=== PATIENT | female | born 1985 | race African-American/Black ===

== ENCOUNTER 2017-10-16 19:53 | Inpatient (IN) | payer MEDICAID ==
[~2017-10-16] VITALS: Ht 157.5 cm; Wt 60.3 kg
[2017-10-16] MEDS ORDERED: PREN1TAB45 PO (20:42)
--- NOTE | 2017-10-16 20:53 | PD ---
HPI Chief Complaint Contractions and ruptured membranes Date Seen: Oct 16, 2017 Time Seen: 20:49 Travel History International Travel<30 Days: Yes Contact w/Intl Traveler<30Days: Yes Name of Country Traveled to: [place] Known Affected Area: Yes History of Present Illness HPI 32-year-old who is at 39 weeks 6 days based on first trimester ultrasound comes in complaining of contractions for several hours and rupture membranes that occurred an hour and a half ago. She gets her care in the lab with Dr. Watson and we have no records despite calling the [facility]. Patient has a history of a delivery at 32 weeks, vaginally that was 4 lbs. 2 oz. Patient denies any complications and states that she does believe that she is group B strep positive based on the conversation she had with the planner/scheduler Weeks Gestation: 39 Para: 1 : 2 History Past Medical History Medical History: Denies Significant Hx Obstetric History Obstetric History Spontaneous vaginal delivery at 32 weeks Past Surgical History Surgical History: No Previous Surgery Family History Family History: Negative Social History Alcohol Use: No Tobacco Use: No Substance Abuse: No Allergies-Medications (Allergen,Severity, Reaction): Coded Allergies: No Known Allergies (Verified Allergy, Unknown, 10/16/17) Home Meds Reported Medications Vit,Calc76/Iron/Folic (Pnv 29-1 Tablet) 29 Mg Iron-1 Mg Tablet, 1 TAB PO DAILY 10/16/17 Review of Systems Except as stated in HPI: all other systems reviewed are Neg Physical Exam Narrative GENERAL: Well-nourished, well-developed patient. SKIN: Warm and dry. HEAD: Normocephalic and atraumatic. EYES: No scleral icterus. No injection or drainage. ENT: No nasal drainage noted. Mucous membranes pink. Airway patent. NECK: Supple, trachea midline. No JVD. CARDIOVASCULAR: Regular rate and rhythm without murmurs, gallops, or rubs. RESPIRATORY: Breath sounds equal bilaterally. No accessory muscle use. ABDOMEN/GI: Abdomen soft, non-tender, bowel sounds present, no rebound, no guarding Gravid to [-] weeks size 36 Fundal Height: [-] GENITOURINARY: External Genitalia: intact and normal in appearance BUS glands: [-] Normal Cervix: [-] Midposition Dilatation: [-] 3 Effacement: [-] 90 Station: [-] -1 Presentation: [-] Vertex Membranes: [intact or ruptured] ruptured Uterine Contractions: [-] Irregular every 5-7 FHT's: Category: [-] 1 Baseline: [-] 140 Reactive: [-] Moderate Variability: [-] Moderate Decels: [-] Absent EXTREMITIES: No cyanosis or edema. BACK: Nontender without obvious deformity. No CVA tenderness. NEUROLOGICAL: Awake and alert. Motor and sensory grossly within normal limits. Five out of 5 muscle strength in all muscle groups. Normal speech. Data Data Vital Signs Reviewed: Yes Orders Orders Ob (2e) Additional Admit Info (10/16/17 20:40) Group B Strep: Positive MDM Plan 32-year-old who is at 39 weeks 6 days, possible positive group B strep in labor with ruptured membranes Patient appears to be a fairly good historian so we will treat her with penicillin for group B strep prophylaxis Diagnosis Diagnosis: Primary Impression: 39 weeks gestation of Additional Impressions: Previous delivery in third trimester, antepartum Rupture of membranes with clear amniotic fluid Mother positive for group B Streptococcus colonization Destiny Ewing MD Oct 16, 2017 20:53
[2017-10-16] MEDS ORDERED: LACTATED RINGER'S 1000 ML INJ 1,000 ML IV PRN (20:54)
[2017-10-16] MEDS ORDERED: LACTATED RINGER'S 1000 ML INJ 1,000 ML IV SCH (20:54)
[2017-10-16] MEDS ORDERED: SODIUM CHLORID 0.9% 500 ML INJ 500 ML IV PRN (21:00)
[2017-10-16] MEDS ORDERED: CITRIC ACID-SODIUM CITRATE LIQ 30 ML UDC PO SCH (21:00)
[2017-10-16] MEDS ORDERED: PENICILLIN G POTASSIUM INJ 5,000,000 UNITS in SODIUM CHLORIDE 0.9% INJ 100 ML IV ONE (21:00)
[2017-10-16] MEDS ORDERED: MINERAL OIL 10 ML VIAL TOPICAL PRN (21:00)
[2017-10-16] MEDS ORDERED: LIDOCAINE HCL 1% 50 ML VIAL I-DERMAL PRN (21:00)
[2017-10-16] MEDS ORDERED: ONDANSETRON HCL 4 MG/2 ML VIAL IV PUSH PRN (21:00)
[2017-10-16] MEDS ORDERED: LIDOCAINE HCL 1% 50 ML VIAL INFIL PRN (21:00)
[2017-10-16] MEDS ORDERED: OXYTOCIN 30 UNITS-500ML PREMIX 500 ML IV ONE (21:00)
[2017-10-16] MEDS ORDERED: SODIUM CHLOR 0.9% 1000 ML INJ 1,000 ML IV PRN (21:14)
[2017-10-16 21:18] VITALS: TEMP 97.5
[2017-10-16 22:08] LABS: AUTOMATED NEUTROPHIL # 6.9 TH/MM3 (1.8-7.7); BASOPHIL # 0.1 TH/MM3 (0-0.2); BASOPHIL % 0.6 % (0.0-2.0); EOSINOPHIL # 0.3 TH/MM3 (0-0.4); EOSINOPHIL % 2.7 % (0.0-4.0); HEMATOCRIT 37.1 % (35.0-46.0); HEMOGLOBIN 13.1 GM/DL (11.6-15.3); LYMPH % 23.3 % (9.0-44.0); LYMPHOCYTE # 2.4 TH/MM3 (1.0-4.8); MEAN CELL VOLUME 88.4 FL (80.0-100.0); MEAN CORPUSCULAR HEMOGLOBIN 31.1 PG (27.0-34.0); MEAN CORPUSCULAR HGB CONC 35.2 % (32.0-36.0); MEAN PLATELET VOLUME 8.3 FL (7.0-11.0); MONO % 6.3 % (0.0-8.0); MONOCYTE # 0.7 TH/MM3 (0-0.9); NEUT % 67.1 % (16.0-70.0); PLATELET COUNT 231 TH/MM3 (150-450); WHITE BLOOD COUNT 10.4 TH/MM3 (4.0-11.0)
[2017-10-16 22:19] LABS: BILIRUBIN, URINE NEG (NEG); BLOOD, URINE SMALL (NEG); GLUCOSE,URINE NEG (NEG); KETONE, URINE NEG (NEG); NITRITE,URINE NEG (NEG); PH, URINE 6.5 (5.0-8.5); SQUAMOUS EPITHELIAL CELL URINE 3 /hpf (0-5); URINE COLOR LIGHT-YELLOW (YELLW/STRAW); URINE LEUKOCYTE ESTERASE TRACE (NEG)
[2017-10-16 22:44] VITALS: RESP 18; TEMP 97.8
[2017-10-17] VITALS (19 sets, daily range): BP systolic 99–120; BP diastolic 65–82; PULSE 74–121; RESP 16–18; TEMP 97.7–98.8; O2SAT 97
[2017-10-17] MEDS ORDERED: LIDOCAINE HCL 1% 20 ML VIAL ONE (00:28)
--- NOTE | 2017-10-17 00:47 | PD.OB.DELI ---
Weeks gestation: 39 Pt started active labor?: Yes Medical induction of labor?: No Artificial rupture of membrane: No Anesthesia: None Episiotomy: None Vaginal Delivery: Normal, Spontaneous Presentation: Occiput anterior Nuchal Cord: x1 (cut at perineum) Delayed cord clamping (45 sec): No : Male Delivery date: Oct 17, 2017 Delivery time: 00:41 One Minute : 8 Five Minute : 9 Weight: delayed Placenta: Spontaneous delivery, Intact, 3 vessel cord Laceration: No lacerations Estimated blood loss: 300 Destiny Ewing MD Oct 17, 2017 00:47
[2017-10-17] MEDS ORDERED: DOCUSATE SODIUM 50 MG/SENNA 8.6 MG TAB PO PRN (01:00)
[2017-10-17] MEDS ORDERED: ALUMINUM/MAGNESIUM/SIMETH 30 ML CUP PO PRN (01:00)
[2017-10-17] MEDS ORDERED: WITCH HAZEL 50%/GLYCERIN 12.5% 40 PAD JAR TOPICAL PRN (01:00)
[2017-10-17] MEDS ORDERED: OXYTOCIN 30 UNITS-500ML PREMIX 500 ML IV SCH (01:00)
[2017-10-17] MEDS ORDERED: SODIUM CHLORIDE 0.9% FLUSH 10 ML FLUSH IV FLUSH PRN (01:00)
[2017-10-17] MEDS ORDERED: BENZOCAINE 20% TOPICAL SPRAY 60 ML CAN TOPICAL PRN (01:00)
[2017-10-17] MEDS ORDERED: ONDANSETRON ODT 4 MG TAB PO PRN (01:00)
[2017-10-17] MEDS ORDERED: ACETAMINOPHEN 325 MG TAB PO PRN (01:00)
[2017-10-17] MEDS ORDERED: PENICILLIN G POTASSIUM INJ 2,500,000 UNITS in SODIUM CHLORIDE 0.9% INJ 100 ML IV SCH (01:00)
[2017-10-17] MEDS ORDERED: OXYTOCIN 30 UNITS-500ML PREMIX 500 ML ONE (01:56)
[2017-10-17] MEDS ORDERED: SODIUM CHLORIDE 0.9% FLUSH 10 ML FLUSH IV FLUSH SCH (09:00)
[2017-10-17] MEDS: IBUPROFEN 800 MG TAB PO PRN ×2 (12:24→19:59)
[2017-10-17] MEDS ORDERED: DIPHTH/TETANUS/ACEL PERTUSSIS (BOOSTER) 0.5 ML VIAL/PFS IM ONE (16:00)
[2017-10-17] MEDS ORDERED: MEASLES, MUMPS, RUBELLA VACCINE 0.5 ML VIAL SQ ONE (16:00)
[2017-10-18 07:00] VITALS: BP 101/67; PULSE 68; RESP 18; TEMP 98.2; O2SAT 97
[2017-10-18] MEDS: IBUPROFEN 800 MG TAB PO PRN (09:46)
--- NOTE | 2017-10-18 09:46 | HHI.OB ---
Subjective Post Day: 1 Remarks 32 y/o who is PPD# 1 s/p . AFVSS overnight. Decreased lochia. Denies dysuria. No breast tenderness. She is feeding the baby via breast. Appetite good. No nausea or vomiting. Patient has not yet had a bowel movement. Ambulating well. Denies calf pain or shortness of breath. Otherwise, she is doing well this morning and has no other concerns. Objective Vitals/I&O Vital Signs Date Time Temp Pulse Resp B/P (MAP) Pulse Ox O2 Delivery O2 Flow Rate FiO2 10/18/17 07:00 98.2 68 18 101/67 (78) 97 10/17/17 20:00 98.3 97 10/17/17 20:00 81 18 118/72 (87) Objective Remarks GENERAL: Well-nourished, well-developed patient. CARDIOVASCULAR: Regular rate and rhythm without murmurs, gallops, or rubs. RESPIRATORY: Breath sounds equal bilaterally. No accessory muscle use. ABDOMEN/GI: Abdomen soft, non-tender. Fundus: Firm, non-tender at umbilicus. GENITOURINARY: Light to moderate bleeding. EXTREMITIES: No cyanosis or edema, non-tender, without signs of DVT. Medications and IVs Current Medications Medications (Trade) Dose Ordered Sig/Pete Route Start Time Stop Time Status Last Admin (NS Flush) 2 ml BID IV FLUSH 10/17/17 09:00 (NS Flush) 2 ml UNSCH PRN IV FLUSH 10/17/17 01:00 (Tylenol) 650 mg Q4H PRN PO 10/17/17 01:00 (Motrin) 800 mg Q8H PRN PO 10/17/17 01:00 10/17/17 19:59 (Americaine 20% Top Spr) 1 spray Q4H PRN TOPICAL 10/17/17 01:00 (Tucks Pads) 1 applic QID PRN TOPICAL 10/17/17 01:00 (Nicole-Colace) 2 tab Q12H PRN PO 10/17/17 01:00 (Mag-Al Plus Susp Liq) 15 ml Q8H PRN PO 10/17/17 01:00 (Zofran Odt) 4 mg Q6H PRN PO 10/17/17 01:00 Assessment/Plan Assessment and Plan 32 y/o female who is PPD# 1 s/p . -Continue routine care. -Percocet and Motrin PRN pain. -Encouraged OOB. Advised pelvic rest for 6 wks. -Anticipate discharge today or tomorrow. dw OB attending Heather Corona MD R1 Oct 18, 2017 09:46
[2017-10-18] MEDS ORDERED: IBUP1TAB7 PO (09:47)
--- NOTE | 2017-10-18 09:48 | HHI.DCPOC ---
Discharge Care Plan Diagnosis: (1) Vaginal delivery (2) Mother positive for group B Streptococcus colonization Your Health Problems Are: Vaginal delivery Report Symptoms to Your Doctor -Temperature above 100.5 degrees -Redness, of incision or excessive or foul smelling drainage -Unusual pain or calf pain -Increased vaginal bleeding -Painful or difficulty urinating -Feelings of extreme sadness or anxiety after 2 weeks Goals to Promote Your Health * To prevent worsening of your condition and complications * To maintain your health at the optimal level Directions to Meet Your Goals Take your medications as prescribed Follow your dietary instruction Follow activity as directed Ensure plenty of rest for recovery Drink fluids for hydration Keep your appointments as scheduled Take your immunizations and boosters as scheduled If your symptoms worsen call your PCP, if no PCP go to Urgent Care Center or Emergency Room Smoking is Dangerous to Your Health. Avoid second hand smoke Call the 24-hour crisis hotline for domestic abuse at Heather Corona MD R1 Oct 18, 2017 09:48
[2017-10-18 20:45] VITALS: BP 105/76; PULSE 82; RESP 18; TEMP 98.1
[2017-10-19 08:20] VITALS: BP 114/78; PULSE 71; RESP 18; TEMP 98.2
--- NOTE | 2017-10-19 08:56 | HHI.OB ---
Subjective Post Day: 2 Remarks day #2. AFVSS overnight. Pain minimal. Decreased lochia. Denies dysuria. No breast tenderness. She is feeding the baby via breast. Appetite good. No nausea or vomiting. Endorses flatus. Endorses bowel movement. Ambulating well. Denies calf pain, shortness of breath, or cough. Otherwise, she is doing well this morning and has no other complaints. Objective Vitals/I&O Vital Signs Date Time Temp Pulse Resp B/P (MAP) Pulse Ox O2 Delivery O2 Flow Rate FiO2 10/18/17 20:45 98.1 82 18 105/76 (86) Objective Remarks GENERAL: Well-nourished, well-developed patient. CARDIOVASCULAR: Regular rate and rhythm without murmurs, gallops, or rubs. RESPIRATORY: Breath sounds equal bilaterally. No accessory muscle use. ABDOMEN/GI: Abdomen soft, non-tender. Fundus: Firm, non-tender at umbilicus. GENITOURINARY: Light to moderate bleeding. EXTREMITIES: No cyanosis or edema, non-tender, without signs of DVT. Medications and IVs Current Medications Medications (Trade) Dose Ordered Sig/Pete Route Start Time Stop Time Status Last Admin (NS Flush) 2 ml BID IV FLUSH 10/17/17 09:00 (NS Flush) 2 ml UNSCH PRN IV FLUSH 10/17/17 01:00 (Tylenol) 650 mg Q4H PRN PO 10/17/17 01:00 (Motrin) 800 mg Q8H PRN PO 10/17/17 01:00 10/18/17 09:46 (Americaine 20% Top Spr) 1 spray Q4H PRN TOPICAL 10/17/17 01:00 (Tucks Pads) 1 applic QID PRN TOPICAL 10/17/17 01:00 (Nicole-Colace) 2 tab Q12H PRN PO 10/17/17 01:00 (Mag-Al Plus Susp Liq) 15 ml Q8H PRN PO 10/17/17 01:00 (Zofran Odt) 4 mg Q6H PRN PO 10/17/17 01:00 Assessment/Plan Assessment and Plan 32 y/o female who is PPD# 2 s/p . -Continue routine care. -Percocet and Motrin PRN pain. -Encouraged OOB. Advised pelvic rest for 6 wks. -Anticipate discharge today Wander Fitzgerald MD Oct 19, 2017 08:56
== END 2017-10-19 10:44 | disposition home or self-care (01) | DRG 775 ==
LOC: HOBED 19:53 → H2EB 20:42 → H1EA 10-17 03:21
PROVIDERS: ADMIT Obstetrics & Gynecology Obstetrics; ATTEND Obstetrics & Gynecology Obstetrics
PROC: 10E0XZZ Delivery of Products of Conception, External Approach (ICD-10-PCS; principal; 2017-10-17)
DX: O99.824 Streptococcus B carrier state complicating childbirth (principal); O69.81X0 Labor and delivery complicated by cord around neck, without compression, not applicable or unspecified; Z37.0 Single live birth; Z3A.39 39 weeks gestation of pregnancy
CPT/HCPCS: 59025; 80074; 80307; 81001; 84112; 85025; 86592; 86703; 86762; 86900; 86901; G0481; J2540; J2590; J3010; J7120